=== PATIENT | male | born 1960 | race Caucasian/White ===

== ENCOUNTER 2019-03-20 10:38 | Day surgery (SDC) | payer BC ==
[2019-03-20] MEDS ORDERED: LACTATED RINGERS 1,000 ML IV ONE (10:58)
[2019-03-20 14:04] VITALS: BP 116/70
== END 2019-03-20 10:39 | disposition home or self-care (01) ==
LOC: SDS 10:38
PROVIDERS: ATTEND Surgery
PROC: 0DJD8ZZ Inspection of Lower Intestinal Tract, Via Natural or Artificial Opening Endoscopic (ICD-10-PCS; principal; 2019-03-20 12:15)
DX: Z12.11 Encounter for screening for malignant neoplasm of colon (principal)
CPT/HCPCS: 45378; 93005; J7120

== ENCOUNTER 2022-07-01 06:53 | Outpatient (CLI) | payer BC ==
--- NOTE | 2022-07-01 13:49 | Ultrasound Report ---
PROCEDURE: Abdomen Limited INDICATIONS: RUQ LUMP TECHNIQUE: Real-time focused scanning was performed of the abdomen, with image documentation. COMPARISON: None. FINDINGS: No ventral or focal hernia in the area of interest. There is a tortuous and dilated vein/v arix in the area of interest measuring up to 2 mm with venous reflux. This is fully compressible with no intraluminal thrombus. IMPRESSION: Dilated and tortuous varix in the area of interest measuring 2 mm in diameter with evidence of venous reflux but no intraluminal thrombus or findings of thrombophlebitis. No hernia. Reviewed by: Campos Nguyen MD on 07/01/2022 12:47 PM [place] Approved by: Campos Nguyen MD on 07/01/2022 12:47 PM [facility] Station ID: [id number]
== END 2022-07-01 06:54 | disposition home or self-care (01) ==
LOC: DI 06:53
PROVIDERS: ATTEND Student in an Organized Health Care Education/Training Program
DX: R19.01 Right upper quadrant abdominal swelling, mass and lump (principal); I86.8 Varicose veins of other specified sites